=== PATIENT | female | born 1960 | race Caucasian/White ===

== ENCOUNTER 2017-11-07 11:55 | Emergency (ER) | payer OTHER ==
[~2017-11-07] VITALS: Ht 167.6 cm; Wt 107.5 kg
[~2017-11-07 11:55] MED LIST: DULO30; LEVSOD88; Lisinopril2.5 MG; METF850 PO; MICROZIDE12.5 MG; NABU500; OMEP20ER PO; SERT25; SYNTHROID
[2017-11-07 12:33] LABS: BASOPHILS ABSOLUTE AUTO 0.05 K/mm3 (0.00-0.23); BASOPHILS PERCENT AUTO 1 % (0-2); EOSINOPHILS ABSOLUTE AUTO 0.24 K/mm3 (0.00-0.68); EOSINOPHILS PERCENT AUTO 3 % (0-6); Hematocrit 40.8 % (33.0-51.0); Hemoglobin 13.5 g/dL (11.5-16.0); IMMATURE GRAN ABSOLUTE AUTO 0.03 K/mm3 (0.00-0.10); IMMATURE GRAN PERCENT AUTO 0 % (0-1); LYMPHOCYTES ABSOLUTE AUTO 2.86 K/mm3 (0.84-5.20); LYMPHOCYTES PERCENT AUTO 35 % (21-46); MONOCYTES ABSOLUTE AUTO 0.52 K/mm3 (0.16-1.47); MONOCYTES PERCENT AUTO 6 % (4-13); Mean Corpuscular HGB 28.2 pg (26.0-34.0); Mean Corpuscular HGB Conc 33.1 g/dL (31.5-36.5); Mean Corpuscular Volume 85 fL (80-100); Mean Platelet Volume 9.3 fL (9.1-12.4); NEUTROPHILS ABSOLUTE AUTO 4.39 K/mm3 (1.96-9.15); NEUTROPHILS PERCENT AUTO 54 % (41-73); Platelet Count 240 K/mm3 (150-400); RDW Standard Deviation 40.6 fL (35.1-46.3); Red Blood Cell Count 4.78 M/mm3 (3.80-5.20); White Blood Cell Count 8.09 K/mm3 (4.00-11.30)
[2017-11-07 12:52] LABS: Alanine Aminotransfer (ALT/SGP 88 U/L (12-78); Albumin, Blood 3.4 g/dL (3.4-5.0); Albumin/Globulin Ratio 0.8 (0.8-1.8); Alk Phos 67 U/L (50-136); Anion Gap 9 mmol/L (6-16); Aspartate Aminotrans (AST/SGOT 50 U/L (12-37); Bilirubin, Total 0.3 mg/dL (0.1-1.0); Blood Urea Nitrogen 12 mg/dL (8-24); Bun/Creatinine Ratio 20.7 (12.0-20.0); CO2, Blood 27 mmol/L (21-32); Calcium, Blood 8.6 mg/dL (8.5-10.1); Chloride, Blood 105 mmol/L (98-108); Creatinine, Blood 0.58 mg/dL (0.40-1.00); Globulin, Blood 4.1 g/dL (2.2-4.0); Glomerular Filtration Rate >60 (60-); Glucose, Blood 200 mg/dL (70-99); Potassium, Blood 3.8 mmol/L (3.5-5.5); Sodium, Blood 141 mmol/L (136-145); Total Protein, Blood 7.5 g/dL (6.4-8.2); Troponin I <0.015 ng/mL (0.000-0.040)
== END 2017-11-07 15:34 | disposition home or self-care (01) ==
LOC: ER 11:55
PROVIDERS: Internal Medicine
DX: R07.9 Chest pain, unspecified (principal); E11.9 Type 2 diabetes mellitus without complications; I10 Essential (primary) hypertension; E03.9 Hypothyroidism, unspecified; Z87.891 Personal history of nicotine dependence
CPT/HCPCS: 36415; 71046; 80053; 83880; 84484; 85025; 93005; 93010; 99283

== ENCOUNTER 2017-12-10 06:02 | Day surgery (SDC) | payer OTHER ==
[~2017-12-10] VITALS: Ht 167.6 cm; Wt 110.0 kg
[~2017-12-10 06:02] MED LIST changes: +ASPI81CH; +GLIP5; +HYDCHL25; +IBUP400; -MICROZIDE12.5 MG; +OXYC5
[2017-12-10] MEDS ORDERED: DIPH50 PO (06:25)
[2017-12-10] MEDS ORDERED: ROSU10TA (09:42)
== END 2017-12-10 12:04 | disposition home or self-care (01) ==
LOC: MHTC 06:02
PROC: B211YZZ Fluoroscopy of Multiple Coronary Arteries using Other Contrast (ICD-10-PCS; principal; 2017-12-10)
DX: R07.9 Chest pain, unspecified (principal); I44.0 Atrioventricular block, first degree; R06.02 Shortness of breath; R53.83 Other fatigue; R42 Dizziness and giddiness; Z87.891 Personal history of nicotine dependence; I10 Essential (primary) hypertension; Z82.49 Family history of ischemic heart disease and other diseases of the circulatory system; E11.9 Type 2 diabetes mellitus without complications; E03.9 Hypothyroidism, unspecified; F32.9 Major depressive disorder, single episode, unspecified; G47.30 Sleep apnea, unspecified; Z79.84 Long term (current) use of oral hypoglycemic drugs
CPT/HCPCS: 93454; 99152; 99153; C1769; C1894; J1644; J2250; J3010; J7030; Q9967

== ENCOUNTER 2019-09-01 06:36 | Emergency (ER) | payer SELFPAY ==
[~2019-09-01] VITALS: Ht 167.6 cm; Wt 110.7 kg
[~2019-09-01 06:36] MED LIST changes: +DIPH50 PO; +ROSU10TA
[2019-09-01 07:53] LABS: BASOPHILS ABSOLUTE AUTO 0.05 K/mm3 (0.00-0.23); BASOPHILS PERCENT AUTO 1 % (0-2); EOSINOPHILS ABSOLUTE AUTO 0.63 K/mm3 (0.00-0.68); EOSINOPHILS PERCENT AUTO 6 % (0-6); Hematocrit 41.7 % (33.0-51.0); Hemoglobin 13.8 g/dL (11.5-16.0); IMMATURE GRAN ABSOLUTE AUTO 0.03 K/mm3 (0.00-0.10); IMMATURE GRAN PERCENT AUTO 0 % (0-1); LYMPHOCYTES ABSOLUTE AUTO 3.08 K/mm3 (0.84-5.20); LYMPHOCYTES PERCENT AUTO 32 % (21-46); MONOCYTES ABSOLUTE AUTO 0.57 K/mm3 (0.16-1.47); MONOCYTES PERCENT AUTO 6 % (4-13); Mean Corpuscular HGB 28.9 pg (26.0-34.0); Mean Corpuscular HGB Conc 33.1 g/dL (31.5-36.5); Mean Corpuscular Volume 87 fL (80-100); Mean Platelet Volume 9.7 fL (9.1-12.4); NEUTROPHILS ABSOLUTE AUTO 5.43 K/mm3 (1.96-9.15); NEUTROPHILS PERCENT AUTO 56 % (41-73); Platelet Count 265 K/mm3 (150-400); RDW Coefficient Variation 13.1 % (11.7-14.2); RDW Standard Deviation 41.3 fL (35.1-46.3); Red Blood Cell Count 4.78 M/mm3 (3.80-5.20); White Blood Cell Count 9.79 K/mm3 (4.00-11.30)
[2019-09-01 08:13] LABS: Alanine Aminotransfer (ALT/SGP 93 U/L (12-78); Albumin, Blood 3.4 g/dL (3.4-5.0); Albumin/Globulin Ratio 0.8 (0.8-1.8); Alk Phos 65 U/L (50-136); Anion Gap 7 mmol/L (6-16); Aspartate Aminotrans (AST/SGOT 71 U/L (12-37); Bilirubin, Total 0.3 mg/dL (0.1-1.0); Blood Urea Nitrogen 12 mg/dL (8-24); Bun/Creatinine Ratio 24.2 (12.0-20.0); CO2, Blood 27 mmol/L (21-32); Chloride, Blood 102 mmol/L (98-108); Globulin, Blood 4.3 g/dL (2.2-4.0); Glomerular Filtration Rate >60 (60-); Glucose, Blood 253 mg/dL (70-99); Potassium, Blood 3.4 mmol/L (3.5-5.5); Sodium, Blood 136 mmol/L (136-145); Total Protein, Blood 7.7 g/dL (6.4-8.2); Troponin I <0.015 ng/mL (0.000-0.040)
[2019-09-01] MEDS ORDERED: ALBU90OI INH (08:57)
[2019-09-01] MEDS ORDERED: Prednisone20 MG PO (08:57)
== END 2019-09-01 09:24 | disposition home or self-care (01) ==
LOC: ER 06:36
PROVIDERS: Emergency Medicine
DX: R06.02 Shortness of breath (principal); I10 Essential (primary) hypertension; E11.9 Type 2 diabetes mellitus without complications; E03.9 Hypothyroidism, unspecified; E78.5 Hyperlipidemia, unspecified; Z88.0 Allergy status to penicillin; Z88.5 Allergy status to narcotic agent; Z79.899 Other long term (current) drug therapy; Z87.891 Personal history of nicotine dependence
CPT/HCPCS: 36415; 71046; 80053; 83880; 84484; 85025; 93005; 93010; 99284-25

== ENCOUNTER → 2022-03-01 | Outpatient (CLI) | payer OTHER ==
[~2022-03-01] MED LIST changes: +ALBU90OI INH; +DOXY100 PO; +Prednisone20 MG PO; +Prednisone50 MG PO
[2022-03-01 15:29] LABS: BASOPHILS ABSOLUTE AUTO 0.03 K/mm3 (0.00-0.23); BASOPHILS PERCENT AUTO 0 % (0-2); EOSINOPHILS PERCENT AUTO 0 % (0-6); Hematocrit 40.2 % (33.0-51.0); Hemoglobin 13.4 g/dL (11.5-16.0); IMMATURE GRAN PERCENT AUTO 2 % (0-1); LYMPHOCYTES ABSOLUTE AUTO 1.61 K/mm3 (0.84-5.20); LYMPHOCYTES PERCENT AUTO 12 % (21-46); MONOCYTES ABSOLUTE AUTO 0.42 K/mm3 (0.16-1.47); MONOCYTES PERCENT AUTO 3 % (4-13); Mean Corpuscular HGB 29.1 pg (26.0-34.0); Mean Corpuscular HGB Conc 33.3 g/dL (31.5-36.5); Mean Corpuscular Volume 87 fL (80-100); Mean Platelet Volume 9.8 fL (9.1-12.4); NEUTROPHILS ABSOLUTE AUTO 11.36 K/mm3 (1.96-9.15); NEUTROPHILS PERCENT AUTO 83 % (41-73); Platelet Count 251 K/mm3 (150-400); RDW Coefficient Variation 15.2 % (11.7-14.2); RDW Standard Deviation 47.8 fL (35.1-46.3); Red Blood Cell Count 4.61 M/mm3 (3.80-5.20); White Blood Cell Count 13.72 K/mm3 (4.00-11.30)
== END ==
LOC: LAB SHORT 15:24 → LAB 15:24
PROVIDERS: Physician Assistant Medical
DX: I87.2 Venous insufficiency (chronic) (peripheral) (principal); R60.9 Edema, unspecified
CPT/HCPCS: 83880; 85025; 85379

== ENCOUNTER 2022-03-18 07:04 | Day surgery (SDC) | payer OTHER ==
[~2022-03-18] VITALS: Ht 165.1 cm; Wt 102.8 kg
[2022-03-18] MEDS ORDERED: REPAGLINIDE0.5 MG PO (07:43)
--- NOTE | 2022-03-18 07:54 | NUR ---
03/18/22 0754 Irma Orantes CALL LIGHT WITHIN REACH.
--- NOTE | 2022-03-18 09:27 | NUR ---
03/18/22 0927 MICHELLE CALDERON 0.1MG OF EPI (1MG/1ML) ADDED TO 10MLS OF LIDOCAINE 1% TO CREATE A LOCAL SOLUTION OF LIDOCAINE 1% WITH EPI 1:100,000. VERIFIED BY SHAYNA TORRES. 2MLS OF LOCAL INJECTED PRIOR TO STERILE PREP. 8MLS POURED ONTO STERILE FIELD FOR USE DURING CASE.
--- NOTE | 2022-03-18 11:25 | NUR ---
03/18/22 1125 Amilcar Sunshine WASHED HAIR POST OP, WOUND DRESSING CDI, IN NAD, VOICED NO C/O. V/U OF D/C INSTRUCTIONS, DENIES PAIN, PT AMBULATORY TO CAR, P/U BY .
== END 2022-03-18 11:15 | disposition home or self-care (01) ==
LOC: ORSCSDS 07:04
PROVIDERS: Otolaryngology
PROC: 03BT0ZX Excision of Left Temporal Artery, Open Approach, Diagnostic (ICD-10-PCS; principal; 2022-03-18 08:15)
DX: R51.9 Headache, unspecified (principal); R70.0 Elevated erythrocyte sedimentation rate; I10 Essential (primary) hypertension; E11.9 Type 2 diabetes mellitus without complications; G47.33 Obstructive sleep apnea (adult) (pediatric); Z79.4 Long term (current) use of insulin; Z79.899 Other long term (current) drug therapy; Z79.82 Long term (current) use of aspirin
CPT/HCPCS: 82947; 88305; J0171; J2001; J2250; J2704; J3010; J7120

== ENCOUNTER 2022-05-22 17:21 | Emergency (ER) | payer OTHER ==
[~2022-05-22] VITALS: Ht 167.6 cm; Wt 108.0 kg
[~2022-05-22 17:21] MED LIST changes: +REPAGLINIDE0.5 MG PO
== END 2022-05-22 19:30 | disposition home or self-care (01) ==
LOC: ER 17:21
DX: R60.0 Localized edema (principal); I10 Essential (primary) hypertension; Z79.890 Hormone replacement therapy; Z79.82 Long term (current) use of aspirin; Z79.84 Long term (current) use of oral hypoglycemic drugs; Z79.52 Long term (current) use of systemic steroids; Z88.5 Allergy status to narcotic agent; Z88.0 Allergy status to penicillin; Z87.891 Personal history of nicotine dependence
CPT/HCPCS: 93971

== ENCOUNTER 2023-01-31 06:32 | Inpatient (IN) | payer OTHER ==
[~2023-01-31] VITALS: Ht 165.1 cm; Wt 95.4 kg
[~2023-01-31 06:32] MED LIST changes: +ONDA4 PO
[2023-01-31 06:58] LABS: BASOPHILS ABSOLUTE AUTO 0.07 K/mm3 (0.00-0.23); BASOPHILS PERCENT AUTO 0 % (0-2); EOSINOPHILS ABSOLUTE AUTO 0.14 K/mm3 (0.00-0.68); EOSINOPHILS PERCENT AUTO 1 % (0-6); Hematocrit 42.7 % (33.0-51.0); Hemoglobin 15.3 g/dL (11.5-16.0); IMMATURE GRAN ABSOLUTE AUTO 0.15 K/mm3 (0.00-0.10); IMMATURE GRAN PERCENT AUTO 1 % (0-1); LYMPHOCYTES ABSOLUTE AUTO 3.19 K/mm3 (0.84-5.20); LYMPHOCYTES PERCENT AUTO 19 % (21-46); MONOCYTES ABSOLUTE AUTO 1.08 K/mm3 (0.16-1.47); MONOCYTES PERCENT AUTO 6 % (4-13); Mean Corpuscular HGB 31.9 pg (26.0-34.0); Mean Corpuscular HGB Conc 35.8 g/dL (31.5-36.5); Mean Corpuscular Volume 89 fL (80-100); Mean Platelet Volume 9.3 fL (9.1-12.4); NEUTROPHILS ABSOLUTE AUTO 12.23 K/mm3 (1.96-9.15); NEUTROPHILS PERCENT AUTO 73 % (41-73); Platelet Count 292 K/mm3 (150-400); RDW Coefficient Variation 12.9 % (11.7-14.2); RDW Standard Deviation 42.1 fL (35.1-46.3); White Blood Cell Count 16.86 K/mm3 (4.00-11.30)
[2023-01-31 07:15] LABS: Albumin, Blood 3.4 g/dL (3.4-5.0); Albumin/Globulin Ratio 1.1 (0.8-1.8); Bilirubin, Total 0.5 mg/dL (0.1-1.0); Bun/Creatinine Ratio 19.5 (12.0-20.0); Calcium, Blood 8.8 mg/dL (8.5-10.1); Creatinine, Blood 0.72 mg/dL (0.40-1.00); Globulin, Blood 3.2 g/dL (2.2-4.0); Potassium, Blood 3.4 mmol/L (3.5-5.5); Total Protein, Blood 6.6 g/dL (6.4-8.2)
[2023-01-31 08:09] LABS: Source, Urine Clean Catch
[2023-01-31 08:24] LABS: Bilirubin, Urine Neg (Neg); Blood, Urine Neg (Neg); Glucose Qualitative, Urine 3+ (Neg); Ketones, Urine Neg (Neg); Leukocyte Esterase, Urine Neg (Neg); Nitrite, Urine Neg (Neg); Protein, Urine Neg (Neg); Specific Gravity, Urine 1.005 (1.003-1.022); Urobilinogen, Urine NORM (Normal)
[2023-01-31 08:28] LABS: Appearance, Urine Clear (Clear); Color, Urine Yellow (P-Yellow)
[2023-01-31 11:07] VITALS: BP 172/81
[2023-01-31] MEDS ORDERED: ACTEMRA162 MG/0.1 SQ (11:38)
[2023-01-31] MEDS ORDERED: ARNUITY ELLIP200 MCG INH (11:40)
[2023-01-31] MEDS ORDERED: ESTR2 PO (11:41)
[2023-01-31] MEDS ORDERED: AIRDUO RESPICL1 EAC1 INH (11:43)
[2023-01-31] MEDS ORDERED: ARNUITY ELLIPT50 MCG IH (11:43)
[2023-01-31] MEDS ORDERED: GABA300 PO (11:44)
[2023-01-31] MEDS ORDERED: Oretic 25 mg Ta25 MG PO (11:45)
[2023-01-31] MEDS ORDERED: IBUP400 PO (11:46)
[2023-01-31] MEDS ORDERED: LEVEMIR100 UNIT/1 SC (11:48)
[2023-01-31] MEDS ORDERED: MONT10T PO (11:49)
[2023-01-31] MEDS ORDERED: LEVSOD25 PO (11:49)
[2023-01-31] MEDS ORDERED: PROG100 PO (11:50)
[2023-01-31] MEDS ORDERED: THYR60 PO (11:50)
[2023-01-31] MEDS ORDERED: REPA2 PO (11:51)
[2023-01-31] MEDS ORDERED: TESTOSTERONE50 MG (11:53)
[2023-01-31] MEDS ORDERED: ZOLP5 PO (11:53)
[2023-01-31] MEDS ORDERED: MERIBIN5 MG PO (11:53)
[2023-01-31 15:49] VITALS: BP 142/63
--- NOTE | 2023-01-31 18:38 | NUR ---
THE PATIENT WAS ADMITTED TODAY FOR DIVERTICULITIS, HER ADMISSION WAS COMPLETED AND HER DOCTOR ORDERED HER NPO AND TO START ABX. THE PATIENT IS COMPLIANT AND PLEASANT TO TALK WITH. SHE HAS RECEIVED PAIN MEDICATION, FOR HER PAIN AND IS RESTING IN HER ROOM AT THIS TIME. THE PATIENT WAS EDUCATED ON FIRE DANGERS AND IGNITIONS SOURCES
[2023-01-31 19:55] VITALS: BP 137/65
[2023-02-01 03:21] VITALS: BP 146/79
--- NOTE | 2023-02-01 04:43 | NUR ---
SHIFT SUMMARY PATIENT A/Ox4, PLEASANT AFFECT, C/O PAIN TO LLQ. RECEIVED PRN FENTANYL AND TOLERATED WELL WITHOUT FURTHER C/O PAIN. C/O OF GAS AND FEELING BLOATED, DECLINED INTERVENTION, STATES IT IS SLOWLY RESOLVING ON ITS OWN. COMPLIANT WITH NPO STATUS. PIV TO RIGHT AC, INFUSING NS AT 100mL/HR. EDUCATED ON FIRE SAFETY AND RISK OF INJURY R/T OXYGEN USE, VERBALIZED UNDERSTANDING, DENIES SMOKING NOR HAVING ACCESS TO ANY SOURCES OF IGNITION. BED IN LOW POSTION, CALL LIGHT WITHIN REACH.
[2023-02-01 05:39] LABS: BASOPHILS ABSOLUTE AUTO 0.05 K/mm3 (0.00-0.23); BASOPHILS PERCENT AUTO 0 % (0-2); EOSINOPHILS ABSOLUTE AUTO 0.23 K/mm3 (0.00-0.68); EOSINOPHILS PERCENT AUTO 1 % (0-6); Hematocrit 40.5 % (33.0-51.0); IMMATURE GRAN ABSOLUTE AUTO 0.11 K/mm3 (0.00-0.10); IMMATURE GRAN PERCENT AUTO 1 % (0-1); LYMPHOCYTES ABSOLUTE AUTO 2.67 K/mm3 (0.84-5.20); LYMPHOCYTES PERCENT AUTO 13 % (21-46); MONOCYTES ABSOLUTE AUTO 0.95 K/mm3 (0.16-1.47); MONOCYTES PERCENT AUTO 5 % (4-13); Mean Corpuscular HGB 31.5 pg (26.0-34.0); Mean Corpuscular HGB Conc 34.6 g/dL (31.5-36.5); Mean Corpuscular Volume 91 fL (80-100); Mean Platelet Volume 9.4 fL (9.1-12.4); NEUTROPHILS ABSOLUTE AUTO 16.07 K/mm3 (1.96-9.15); NEUTROPHILS PERCENT AUTO 80 % (41-73); Platelet Count 223 K/mm3 (150-400); RDW Coefficient Variation 13.3 % (11.7-14.2); Red Blood Cell Count 4.45 M/mm3 (3.80-5.20); White Blood Cell Count 20.08 K/mm3 (4.00-11.30)
[2023-02-01 06:18] LABS: Bun/Creatinine Ratio 12.3 (12.0-20.0); Calcium, Blood 7.9 mg/dL (8.5-10.1); Creatinine, Blood 0.73 mg/dL (0.40-1.00); Potassium, Blood 3.5 mmol/L (3.5-5.5)
[2023-02-01 08:06] VITALS: BP 142/69
[2023-02-01 16:14] VITALS: BP 135/77
--- NOTE | 2023-02-01 19:39 | NUR ---
SHIFT SUMMARY: PT A/O X 4, IND. PLEASANT AND COOPERATIVE. PT CONTINUES TO HAVE LL ABD PAIN CONTROLLED WIH CURRENT PAIN MEDICATIONS. MEDICATED 2 X WITH FENTANYL 50 MCG THIS SHIFT. PT ALSO REPORTS HEADACHE CONTROLLED WITH TYLENOL. PT REPORTS PASSING GAS AND ABD PAIN IS MUCH WORSE WITH PASSING GAS. NO BM TODAY.
[2023-02-01 19:46] VITALS: BP 154/75
[2023-02-02 03:56] VITALS: BP 152/78
--- NOTE | 2023-02-02 04:20 | NUR ---
MEDICAL RECEPTIONIST MEDICAL ASSISTANT SUMMARY BP SLIGHT ELEVATED, OTHERWISE VSS. ALERT TO QUESTIONS ASKED. RECEIVED PAIN MEDS X 2 THIS SHIFT. UP TO BATHROOM X 2 TO VOID, VOICED HAD BM WELL. IVF INFUSING AT 75 ML/HR AND ANTIBIOTICS INFUSING ORDERED - SEE MAR FOR DETAILS. OTHERWISE, HAS BEEN RESTING QUIETLY WITH CPAP IN USE. O2 SATS IN THE 90'S. CALL LIGHT IN REACH. WILL CONTINUE TO MONITOR
[2023-02-02 06:09] LABS: Hematocrit 42.1 % (33.0-51.0); Hemoglobin 14.5 g/dL (11.5-16.0); Mean Corpuscular HGB 31.2 pg (26.0-34.0); Mean Corpuscular HGB Conc 34.4 g/dL (31.5-36.5); Mean Corpuscular Volume 91 fL (80-100); Mean Platelet Volume 9.6 fL (9.1-12.4); Platelet Count 211 K/mm3 (150-400); RDW Coefficient Variation 13.2 % (11.7-14.2); RDW Standard Deviation 43.7 fL (35.1-46.3); Red Blood Cell Count 4.65 M/mm3 (3.80-5.20); White Blood Cell Count 15.88 K/mm3 (4.00-11.30)
[2023-02-02 06:28] LABS: Bun/Creatinine Ratio 10.6 (12.0-20.0); Calcium, Blood 8.1 mg/dL (8.5-10.1); Creatinine, Blood 0.66 mg/dL (0.40-1.00); Potassium, Blood 3.5 mmol/L (3.5-5.5)
[2023-02-02 08:04] VITALS: BP 130/67
[2023-02-02 15:36] VITALS: BP 136/76
--- NOTE | 2023-02-02 18:41 | NUR ---
SHIFT SUMMARY: PT A/O X 4, IND, PLEASANT AND COOPERATIVE. PAIN MANAGED WELL TODAY. TOLERATED CLEAR LIQUID DIET WITH NO REPORTS OF INCREASED PAIN. PT REPORTS PASSING GAS BUT NO BM TODAY.
[2023-02-02 20:02] VITALS: BP 151/77
--- NOTE | 2023-02-03 04:52 | NUR ---
PT IS A&O4, INDEPENDENT IN THE ROOM, RA, CPAP AT NIGHT, PRN PAIN MEDICATION GIVEN X1 FOR BACK/HIP PAIN, VSS, NO ACUTE OVERNIGHT EVENTS, FIRE SAFETY EDUCATION PROVIDED, CONTINUE POC
[2023-02-03 05:05] LABS: Hematocrit 42.3 % (33.0-51.0); Hemoglobin 14.6 g/dL (11.5-16.0); Mean Corpuscular HGB 31.1 pg (26.0-34.0); Mean Corpuscular HGB Conc 34.5 g/dL (31.5-36.5); Mean Corpuscular Volume 90 fL (80-100); Mean Platelet Volume 9.2 fL (9.1-12.4); Platelet Count 216 K/mm3 (150-400); RDW Standard Deviation 42.9 fL (35.1-46.3); Red Blood Cell Count 4.69 M/mm3 (3.80-5.20); White Blood Cell Count 11.32 K/mm3 (4.00-11.30)
[2023-02-03 06:39] VITALS: BP 135/64
[2023-02-03 07:58] VITALS: BP 150/74
[2023-02-03 15:32] VITALS: BP 109/68
--- NOTE | 2023-02-03 18:25 | NUR ---
SHIFT SUMMARY: PT A/O X 4, IND IN ROOM PLEASANT AND COOPERATIVE. PT HAD MED SIZED SEMI FORMED BROWN BM TODAY AFTER MOM GIVEN. PT REPORTED INCREASED FREQUENCY FOR NEED FOR PAIN MEDICATION POST BM. PT DESCRIBES LL ABD PAIN SPASMS THAT COME AND GO. REMINDED PT AND ENCOURAGED PT TO GO SLOW WITH FULL LIQUID DIET AND OFFERED CLEAR LIQUID CHOICES FROM PANTRY WHICH SHE REFUSED. PT EDUCATED ON FIRE SAFETY AND SHE HAD NO EVIDENT USE OF IGNITION MATERIALS TODAY.
[2023-02-03 20:26] VITALS: BP 133/58
--- NOTE | 2023-02-04 00:33 | NUR ---
PATIENT RESTING, CPAP ON, NO DISTRESS, RESPS EVEN AND NONLABORED, CALL LIGHT WITH IN REACH
[2023-02-04 05:15] VITALS: BP 137/72
[2023-02-04 05:16] LABS: Hematocrit 47.8 % (33.0-51.0); Hemoglobin 16.5 g/dL (11.5-16.0); Mean Corpuscular HGB 31.3 pg (26.0-34.0); Mean Corpuscular HGB Conc 34.5 g/dL (31.5-36.5); Mean Corpuscular Volume 91 fL (80-100); Mean Platelet Volume 9.1 fL (9.1-12.4); Platelet Count 245 K/mm3 (150-400); RDW Coefficient Variation 13.1 % (11.7-14.2); RDW Standard Deviation 43.3 fL (35.1-46.3); Red Blood Cell Count 5.28 M/mm3 (3.80-5.20); White Blood Cell Count 8.27 K/mm3 (4.00-11.30)
[2023-02-04 05:50] LABS: Albumin, Blood 3.2 g/dL (3.4-5.0); Albumin/Globulin Ratio 0.9 (0.8-1.8); Bilirubin, Total 0.6 mg/dL (0.1-1.0); Bun/Creatinine Ratio 10.2 (12.0-20.0); Calcium, Blood 8.8 mg/dL (8.5-10.1); Creatinine, Blood 0.59 mg/dL (0.40-1.00); Globulin, Blood 3.4 g/dL (2.2-4.0); Total Protein, Blood 6.6 g/dL (6.4-8.2)
--- NOTE | 2023-02-04 06:20 | NUR ---
ALERT AND ORIENTED, EASILY BACK TO SLEEP, SLEPT THROUGH THE WHOLE NIGHT, DENIES PAIN, REPORTS ABDOMEN PAIN RESOLVED, DENIED FENTANYL FOR PAIN THROUGHOUT THE SHIFT, CALL LIGHT WITH IN REACH, PLEASANT TO CARE, WILL RELAY TO PM RN
[2023-02-04 08:06] VITALS: BP 148/77
--- NOTE | 2023-02-04 14:45 | NUR ---
SHIFT SUMMARY RECEIVING PAIN MEDICATION VIA IV THIS SHIFT WITH GOOD RESULTS, ALSO TAKING APAP. EDUCATION PROVIDED REGARDING FIRE SAFETY, DENIES HAVING ANY SOURCES OF IGNITION, VISITORS DENY THE SAME. CHANGED ABX TO ZOSYN, TOLERATED WELL, NO REACTIONS OF THIS TIME.
[2023-02-04 16:03] VITALS: BP 162/71
--- NOTE | 2023-02-04 18:20 | NUR ---
ALLERGY PATIENT INFORMED NURSE REGARDING METFORMIN ALLERGY, NOT ADMINISTERED, ALLERGIES UPDATED
[2023-02-04 19:35] VITALS: BP 138/68
[2023-02-05 05:01] VITALS: BP 149/78
--- NOTE | 2023-02-05 05:29 | NUR ---
ALERT AND ORIENTED, INDEPEDENT IN THE ROOM, MAKES NEEDS KNOWN, SLEPT THIS EVENING BUT NOT MORE THAN 3 HOURS AT A TIMES, CALL LIGHT WITH IN REACH, DENIED NEED FOR PAIN MEDICATIONS THIS PM SHIFT, WILL RELAY TO AM RN
[2023-02-05 06:59] LABS: Albumin, Blood 2.8 g/dL (3.4-5.0); Albumin/Globulin Ratio 0.9 (0.8-1.8); Bilirubin, Total 0.5 mg/dL (0.1-1.0); Bun/Creatinine Ratio 12.7 (12.0-20.0); Calcium, Blood 8.4 mg/dL (8.5-10.1); Creatinine, Blood 0.63 mg/dL (0.40-1.00); Globulin, Blood 3.2 g/dL (2.2-4.0); Hematocrit 42.2 % (33.0-51.0); Hemoglobin 14.7 g/dL (11.5-16.0); Mean Corpuscular HGB 31.3 pg (26.0-34.0); Mean Corpuscular HGB Conc 34.8 g/dL (31.5-36.5); Mean Corpuscular Volume 90 fL (80-100); Mean Platelet Volume 9.8 fL (9.1-12.4); Platelet Count 242 K/mm3 (150-400); Potassium, Blood 3.7 mmol/L (3.5-5.5); RDW Standard Deviation 42.6 fL (35.1-46.3); Red Blood Cell Count 4.69 M/mm3 (3.80-5.20); White Blood Cell Count 8.53 K/mm3 (4.00-11.30)
[2023-02-05 07:33] VITALS: BP 132/79
[2023-02-05] MEDS ORDERED: AMOCLA875 PO (12:00)
[2023-02-05] MEDS ORDERED: VISBIOME 112.51 EACH PO (12:00)
[2023-02-05] MEDS ORDERED: OXYC5 PO (13:15)
--- NOTE | 2023-02-05 13:43 | NUR ---
89O SHIFT/DISCHARGE SUMMARY Pt remains A&O X3 this shift. VSS. Abdominal pain managed. Resp even nonlabored. Uses cpap at night with continuous pulse ox. Up to bathroom independently. All discharge instructions reviewed with return verbal understanding. Hard copy Rx given to pt for pain med. Pt to lobby via transport chair to meet spouse for transfer home.
== END 2023-02-05 13:39 | disposition home or self-care (01) | DRG 392 ==
LOC: ER 06:32 → MEDS 09:37 → ENPENDDIS 02-05 10:08 → MEDS 02-05 13:39
PROVIDERS: Emergency Medicine; Internal Medicine; ADMIT Internal Medicine
DX: K57.20 Diverticulitis of large intestine with perforation and abscess without bleeding (principal); E11.65 Type 2 diabetes mellitus with hyperglycemia; E87.6 Hypokalemia; I10 Essential (primary) hypertension; J45.909 Unspecified asthma, uncomplicated; E11.42 Type 2 diabetes mellitus with diabetic polyneuropathy; G47.33 Obstructive sleep apnea (adult) (pediatric); E03.9 Hypothyroidism, unspecified; E78.5 Hyperlipidemia, unspecified; E66.01 Morbid (severe) obesity due to excess calories; I35.0 Nonrheumatic aortic (valve) stenosis; R01.1 Cardiac murmur, unspecified; K21.9 Gastro-esophageal reflux disease without esophagitis; F32.A Depression, unspecified; G47.00 Insomnia, unspecified; M19.90 Unspecified osteoarthritis, unspecified site; M06.9 Rheumatoid arthritis, unspecified; Z88.0 Allergy status to penicillin; Z88.5 Allergy status to narcotic agent; Z88.8 Allergy status to other drugs, medicaments and biological substances; Z79.890 Hormone replacement therapy; Z79.1 Long term (current) use of non-steroidal anti-inflammatories (NSAID); Z79.82 Long term (current) use of aspirin; Z79.899 Other long term (current) drug therapy; Z99.89 Dependence on other enabling machines and devices; Z90.710 Acquired absence of both cervix and uterus; Z98.890 Other specified postprocedural states; Z87.891 Personal history of nicotine dependence; Z79.4 Long term (current) use of insulin; Z68.36 Body mass index [BMI] 36.0-36.9, adult
CPT/HCPCS: 36415; 74177; 80048; 80053; 81003; 82947; 85025; 85027; 86141; 94640; 94660; 94664; 94760; 94762; 96365-59; 96368; 96375; 99285-25; A9270; J0696; J0744; J1650; J1815; J2185; J2405; J2543; J3010; J3480; J7030; J7050; Q9967

== ENCOUNTER 2023-02-18 11:29 | Emergency (ER) | payer OTHER ==
[~2023-02-18] VITALS: Ht 165.1 cm; Wt 98.4 kg
[~2023-02-18 11:29] MED LIST changes: +ACTEMRA162 MG/0.1 SQ; +AIRDUO RESPICL1 EAC1 INH; +AMOCLA875 PO; +ARNUITY ELLIP200 MCG INH; +ARNUITY ELLIPT50 MCG IH; +ESTR2 PO; +GABA300 PO; +IBUP400 PO; +LEVEMIR100 UNIT/1 SC; +LEVSOD25 PO; +MERIBIN5 MG PO; +MONT10T PO; +OXYC5 PO; +Oretic 25 mg Ta25 MG PO; +PROG100 PO; +REPA2 PO; +TESTOSTERONE50 MG; +THYR60 PO; +VISBIOME 112.51 EACH PO; +ZOLP5 PO
[2023-02-18 12:03] LABS: BASOPHILS ABSOLUTE AUTO 0.06 K/mm3 (0.00-0.23); BASOPHILS PERCENT AUTO 1 % (0-2); EOSINOPHILS ABSOLUTE AUTO 0.15 K/mm3 (0.00-0.68); EOSINOPHILS PERCENT AUTO 2 % (0-6); Hematocrit 43.2 % (33.0-51.0); Hemoglobin 15.3 g/dL (11.5-16.0); IMMATURE GRAN ABSOLUTE AUTO 0.06 K/mm3 (0.00-0.10); IMMATURE GRAN PERCENT AUTO 1 % (0-1); LYMPHOCYTES ABSOLUTE AUTO 2.77 K/mm3 (0.84-5.20); LYMPHOCYTES PERCENT AUTO 29 % (21-46); MONOCYTES ABSOLUTE AUTO 0.78 K/mm3 (0.16-1.47); MONOCYTES PERCENT AUTO 8 % (4-13); Mean Corpuscular HGB 31.2 pg (26.0-34.0); Mean Corpuscular HGB Conc 35.4 g/dL (31.5-36.5); Mean Corpuscular Volume 88 fL (80-100); Mean Platelet Volume 9.2 fL (9.1-12.4); NEUTROPHILS ABSOLUTE AUTO 5.83 K/mm3 (1.96-9.15); NEUTROPHILS PERCENT AUTO 60 % (41-73); Platelet Count 311 K/mm3 (150-400); RDW Coefficient Variation 12.9 % (11.7-14.2); RDW Standard Deviation 41.6 fL (35.1-46.3); Red Blood Cell Count 4.91 M/mm3 (3.80-5.20); White Blood Cell Count 9.65 K/mm3 (4.00-11.30)
[2023-02-18 12:30] LABS: Albumin, Blood 3.6 g/dL (3.4-5.0); Bilirubin, Total 0.5 mg/dL (0.1-1.0); Bun/Creatinine Ratio 11.6 (12.0-20.0); Calcium, Blood 9.7 mg/dL (8.5-10.1); Creatinine, Blood 0.69 mg/dL (0.40-1.00); Globulin, Blood 3.5 g/dL (2.2-4.0); Total Protein, Blood 7.1 g/dL (6.4-8.2)
[2023-02-18] MEDS ORDERED: ACTEMRA162 MG/0.1 SC (13:48)
[2023-02-18] MEDS ORDERED: AMOCLA875 PO (14:58)
[2023-02-18 15:00] VITALS: BP 174/89
== END 2023-02-18 15:07 | disposition home or self-care (01) ==
LOC: ER 11:29
PROVIDERS: Physician Assistant
DX: K57.32 Diverticulitis of large intestine without perforation or abscess without bleeding (principal); Z88.8 Allergy status to other drugs, medicaments and biological substances; Z88.5 Allergy status to narcotic agent; Z88.0 Allergy status to penicillin; Z88.6 Allergy status to analgesic agent; Z79.899 Other long term (current) drug therapy; Z79.82 Long term (current) use of aspirin; I10 Essential (primary) hypertension; E11.9 Type 2 diabetes mellitus without complications; G47.33 Obstructive sleep apnea (adult) (pediatric); E03.9 Hypothyroidism, unspecified; E78.5 Hyperlipidemia, unspecified; Z87.891 Personal history of nicotine dependence
CPT/HCPCS: 74177; 80053; 85025; 99284-25; A9270; Q9967

== ENCOUNTER → 2023-04-15 | Outpatient (CLI) | payer OTHER ==
[~2023-04-15] MED LIST changes: +ACTEMRA162 MG/0.1 SC
== END ==
LOC: LAB 17:27 → LAB SHORT 17:27
DX: N89.8 Other specified noninflammatory disorders of vagina (principal)
CPT/HCPCS: 87070; 87205

== ENCOUNTER → 2024-10-14 | Outpatient (CLI) | payer OTHER ==
[2024-10-14 13:16] LABS: BASOPHILS ABSOLUTE AUTO 0.05 K/mm3 (0.00-0.23); BASOPHILS PERCENT AUTO 0 % (0-2); EOSINOPHILS PERCENT AUTO 0 % (0-6); Hematocrit 43.5 % (33.0-51.0); Hemoglobin 15.1 g/dL (11.5-16.0); IMMATURE GRAN ABSOLUTE AUTO 0.05 K/mm3 (0.00-0.10); IMMATURE GRAN PERCENT AUTO 0 % (0-1); LYMPHOCYTES ABSOLUTE AUTO 2.27 K/mm3 (0.84-5.20); LYMPHOCYTES PERCENT AUTO 16 % (21-46); MONOCYTES ABSOLUTE AUTO 0.91 K/mm3 (0.16-1.47); MONOCYTES PERCENT AUTO 7 % (4-13); Mean Corpuscular HGB 30.8 pg (26.0-34.0); Mean Corpuscular HGB Conc 34.7 g/dL (31.5-36.5); Mean Corpuscular Volume 89 fL (80-100); Mean Platelet Volume 9.9 fL (9.1-12.4); NEUTROPHILS ABSOLUTE AUTO 10.58 K/mm3 (1.96-9.15); NEUTROPHILS PERCENT AUTO 76 % (41-73); Platelet Count 307 K/mm3 (150-400); RDW Coefficient Variation 13.4 % (11.7-14.2); RDW Standard Deviation 43.5 fL (35.1-46.3); Red Blood Cell Count 4.91 M/mm3 (3.80-5.20); White Blood Cell Count 13.86 K/mm3 (4.00-11.30)
[2024-10-14 13:28] LABS: Albumin, Blood 3.7 g/dL (3.4-5.0); Bilirubin, Total 0.6 mg/dL (0.1-1.0); Bun/Creatinine Ratio 24.2 (12.0-20.0); Calcium, Blood 9.3 mg/dL (8.5-10.1); Creatinine, Blood 0.87 mg/dL (0.40-1.00); Globulin, Blood 3.6 g/dL (2.2-4.0); Total Protein, Blood 7.3 g/dL (6.4-8.2)
== END ==
LOC: LAB 12:03 → LAB SHORT 12:03
PROVIDERS: Physician Assistant
DX: R10.11 Right upper quadrant pain (principal)
CPT/HCPCS: 80053; 83690; 84484; 85025

== ENCOUNTER → 2024-10-15 | Outpatient (CLI) | payer OTHER ==
[2024-10-15 12:27] LABS: BASOPHILS ABSOLUTE AUTO 0.04 K/mm3 (0.00-0.23); BASOPHILS PERCENT AUTO 0 % (0-2); EOSINOPHILS PERCENT AUTO 0 % (0-6); Hematocrit 41.9 % (33.0-51.0); Hemoglobin 14.3 g/dL (11.5-16.0); IMMATURE GRAN ABSOLUTE AUTO 0.04 K/mm3 (0.00-0.10); IMMATURE GRAN PERCENT AUTO 0 % (0-1); LYMPHOCYTES ABSOLUTE AUTO 2.32 K/mm3 (0.84-5.20); LYMPHOCYTES PERCENT AUTO 18 % (21-46); MONOCYTES ABSOLUTE AUTO 0.92 K/mm3 (0.16-1.47); MONOCYTES PERCENT AUTO 7 % (4-13); Mean Corpuscular HGB 30.2 pg (26.0-34.0); Mean Corpuscular HGB Conc 34.1 g/dL (31.5-36.5); Mean Corpuscular Volume 88 fL (80-100); Mean Platelet Volume 10.1 fL (9.1-12.4); NEUTROPHILS PERCENT AUTO 74 % (41-73); Platelet Count 284 K/mm3 (150-400); RDW Coefficient Variation 13.4 % (11.7-14.2); RDW Standard Deviation 43.5 fL (35.1-46.3); Red Blood Cell Count 4.74 M/mm3 (3.80-5.20); White Blood Cell Count 12.72 K/mm3 (4.00-11.30)
[2024-10-15 12:41] LABS: Albumin, Blood 3.5 g/dL (3.4-5.0); Bilirubin, Total 0.5 mg/dL (0.1-1.0); Bun/Creatinine Ratio 23.7 (12.0-20.0); Calcium, Blood 9.1 mg/dL (8.5-10.1); Creatinine, Blood 0.89 mg/dL (0.40-1.00); Globulin, Blood 3.6 g/dL (2.2-4.0); Total Protein, Blood 7.1 g/dL (6.4-8.2)
== END ==
LOC: LAB SHORT 11:15 → LAB 11:15
PROVIDERS: Physician Assistant
DX: R10.31 Right lower quadrant pain (principal)
CPT/HCPCS: 80053; 85025